=== PATIENT | female | born 1970 | race Caucasian/White ===

== ENCOUNTER 2020-08-29 09:47 | Emergency (ER) | payer OTHER ==
[~2020-08-29] VITALS: Ht 162.6 cm; Wt 68.0 kg
[2020-08-29] MEDS ORDERED: ALPRAZOLAM0.5 MG PO (10:06)
[2020-08-29] MEDS ORDERED: ACETAMINOPHEN-1 EAC1 PO (10:38)
== END 2020-08-29 10:54 | disposition home or self-care (01) ==
LOC: ED 09:47
DX: S60.221A Contusion of right hand, initial encounter (principal); W01.0XXA Fall on same level from slipping, tripping and stumbling without subsequent striking against object, initial encounter
CPT/HCPCS: 73110; 99283-25